=== PATIENT | male | born 1950 | race Caucasian/White ===

== ENCOUNTER 2016-11-03 21:41 | Emergency (ER) | payer MEDICAID ==
[~2016-11-03] VITALS: Ht 170.2 cm; Wt 56.0 kg
[~2016-11-03 21:41] MED LIST: ADVAI500I PO; ALBU0.086 INH; AMLO5 PO; ATEN25 PO; DUONSOL2 NEB; MEDR4PAK3 PO; SPIRCAP INH; Z.0.OXYGENDME NC
[2016-11-03 21:47] VITALS: BP_SYST 160; BP_SYST 195; BP_DIAS 105; BP_DIAS 98; PULSE 97; RESP 20; TEMP 98.5; O2SAT 95
[2016-11-03] MEDS ORDERED: SODIUM CHLOR 0.9% 1000 ML INJ 1,000 ML IV SCH (21:55)
[2016-11-03] MEDS ORDERED: VENTAER INH (21:57)
[2016-11-03] MEDS ORDERED: MORPHINE SULFATE 4 MG/ML INJ IV PUSH ONE (22:00)
--- NOTE | 2016-11-03 22:02 | PD ---
HPI Chief Complaint: Abdominal Pain Time Seen by Provider: 21:56 Travel History International Travel<30 days: No Contact w/Intl Traveler<30days: No Traveled to known affect area: No History of Present Illness HPI 66-year-old male PMH of COPD, CHF, EtOH abuse, current smoker presents to the ED for evaluation of one month history of left sided abdominal and scrotal pain. Patient states that he's had a hernia in the area for "15 years" but it has become more painful over the last 3 days. He endorses one episode of vomiting. Denies fever, chills, decreased appetite, changes in bowel habits, dysuria. Endorses drinking alcohol daily. Patient states that he "wants this fixed tonight." PFSH Past Medical History Arthritis: No Asthma: Yes Autoimmune Disease: No Blood Disorders: No Anxiety: No Depression: No Heart Rhythm Problems: Yes Cancer: No Cardiovascular Problems: Yes High Cholesterol: No Chemotherapy: No Chest Pain: No Congestive Heart Failure: Yes COPD: Yes Cerebrovascular Accident: No Coronary Artery Disease: No Diabetes: No Diminished Hearing: No Endocrine: No Gastrointestinal Disorders: No GERD: No Glaucoma: No Genitourinary: No Headaches: No Hepatitis: No Hiatal Hernia: No Hypertension: Yes Immune Disorder: No Kidney Stones: No Musculoskeletal: No Neurologic: No Psychiatric: No Reproductive: No Respiratory: Yes (ASTHMA) Immunizations Current: Yes Migraines: No Myocardial Infarction: No Radiation Therapy: No Renal Failure: No Seizures: No Sickle Cell Disease: No Sleep Apnea: No Thyroid Disease: No Ulcer: No Tetanus Vaccination: < 5 Years Influenza Vaccination: No Past Surgical History Abdominal Surgery: Yes (APPY) AICD: No Appendectomy: Yes Arteriovenous Shunt: No Cardiac Surgery: No Cholecystectomy: No Ear Surgery: No Endocrine Surgery: No Eye Surgery: No Genitourinary Surgery: No Gynecologic Surgery: No Insulin Pump: No Joint Replacement: Yes (ANKLE SX TINO.) Oral Surgery: No Pacemaker: No Thoracic Surgery: No Other Surgery: Yes Social History Alcohol Use: Yes (4 BEERS DAILY) Tobacco Use: Yes (2CIGS/DAY) Substance Use: No Allergies-Medications (Allergen,Severity, Reaction): Coded Allergies: Grass (Verified Allergy, Severe, SOB, 11/03/16) Cultivated Oat Pollen (Verified Allergy, Intermediate, 11/03/16) Reported Meds & Prescriptions Reported Meds & Active Scripts Active Reported Ventolin Hfa 18 GM Inh (Albuterol Sulfate) 90 Mcg/Act Aer 2 Puff INH Q4H PRN Review of Systems Except as stated in HPI: all other systems reviewed are Neg Physical Exam Narrative GENERAL: Well-nourished, well-developed white male in no acute distress. SKIN: Focused skin assessment warm/dry. HEAD: Normocephalic. EYES: No scleral icterus. No injection or drainage. NECK: Supple, trachea midline. No JVD or lymphadenopathy. CARDIOVASCULAR: Regular rate and rhythm without murmurs, gallops, or rubs. RESPIRATORY: Breath sounds equal bilaterally. No accessory muscle use. GASTROINTESTINAL: Abdomen soft, non-tender, nondistended. Active bowel sounds. Left sided inguinal hernia. Scrotum enlarged, tense. No erythema, warmth or TTP. Easily reduced. GENITOURINARY: Circumcised. Testes descended bilaterally without evidence of rotation. No lesions or erythema. No urethral discharge. MUSCULOSKELETAL: No cyanosis, or edema. BACK: Nontender without obvious deformity. No CVA tenderness. Data Data Last Documented VS Vital Signs Date Time Temp Pulse Resp B/P Pulse Ox O2 Delivery O2 Flow Rate FiO2 11/03/16 22:20 20 95 Room Air 11/03/16 21:47 98.5 97 160/98 Orders Complete Blood Count With Diff (11/03/16 21:55) Comprehensive Metabolic Panel (11/03/16 21:55) Lactic Acid (11/03/16 21:55) Urinalysis - C+S If Indicated (11/03/16 21:55) Iv Access Insert/Monitor (11/03/16 21:55) Ecg Monitoring (11/03/16 21:55) Oximetry (11/03/16 21:55) NPO (11/03/16 21:55) Sodium Chlor 0.9% 1000 Ml Inj (Ns 1000 M (11/03/16 21:55) Alcohol Withdrawal Asmt-Ciwa ONCE (11/03/16 22:02) MDM Medical Decision Making Medical Screen Exam Complete: Yes Emergency Medical Condition: Yes Differential Diagnosis inguinal hernia versus incarcerated inguinal hernia versus Narrative Course 66-year-old male PMH of COPD, EtOH abuse, current smoker presents to the ED for evaluation of one month history of left sided abdominal and scrotal pain. Patient states that he's had a hernia in the area for "15 years" but it has become more painful over the last 3 days. He endorses one episode of vomiting. Denies fever, chills, decreased appetite, changes in bowel habits, dysuria. Patient states that he "wants this fixed tonight." Vitals reviewed. Diffuse end respiratory wheezing in all lung diamond noted. O2 sats 95% on room air. There is a large left-sided inguinal hernia but this is easily reducible. We' ll check basic labs, administer a liter of fluids. Labs pending. Disposition per Dr. Mcdonald. Jacqueline Byrd Nov 03, 2016 22:01 Denies fever, chills, decreased appetite, changes in bowel habits, dysuria. Patient states that he "wants this fixed tonight." Jacqueline Byrd Nov 03, 2016 22:01
[2016-11-03] MEDS ORDERED: LORazepam 1 MG TAB PO PRN (22:15)
[2016-11-03] MEDS ORDERED: LORazepam 2 MG/ML VIAL IV PUSH PRN ×4 (22:15)
[2016-11-03] MEDS ORDERED: LORazepam 2 MG TAB PO PRN (22:15)
[2016-11-03 22:20] VITALS: RESP 20; O2SAT 95
[2016-11-03] MEDS ORDERED: ONDANSETRON ODT 4 MG TAB PO ONE (22:30)
[2016-11-03 22:41] LABS: AUTOMATED NEUTROPHIL # 5.8 TH/MM3 (1.8-7.7); BASOPHIL # 0.1 TH/MM3 (0-0.2); BASOPHIL % 1.1 % (0.0-2.0); EOSINOPHIL # 0.2 TH/MM3 (0-0.4); HEMATOCRIT 41.1 % (39.0-51.0); HEMO FLAGS DIFF FINAL; LYMPH % 14.8 % (9.0-44.0); LYMPHOCYTE # 1.1 TH/MM3 (1.0-4.8); MEAN CELL VOLUME 86.7 FL (80.0-100.0); MEAN CORPUSCULAR HEMOGLOBIN 29.8 PG (27.0-34.0); MEAN CORPUSCULAR HGB CONC 34.4 % (32.0-36.0); MONO % 6.1 % (0.0-8.0); PLATELET COUNT 225 TH/MM3 (150-450); RED BLOOD COUNT 4.74 MIL/MM3 (4.50-5.90); RED CELL DISTRIBUTION WIDTH 12.8 % (11.6-17.2); WHITE BLOOD COUNT 7.6 TH/MM3 (4.0-11.0)
[2016-11-03 23:05] LABS: ALT (GPT) 35 U/L (12-78); ANION GAP 10 MEQ/L (5-15); AST (GOT) 41 U/L (15-37); BICARBONATE 25.9 MEQ/L (21.0-32.0); BLOOD UREA NITROGEN 14 MG/DL (7-18); CHLORIDE 93 MEQ/L (98-107); GLOMERULAR FILTRATION RATE 82 ML/MIN (>89); POTASSIUM 3.6 MEQ/L (3.5-5.1); SODIUM (NA) 129 MEQ/L (136-145)
--- NOTE | 2016-11-03 23:05 | PD ---
Data Data Last Documented VS Vital Signs Date Time Temp Pulse Resp B/P Pulse Ox O2 Delivery O2 Flow Rate FiO2 11/04/16 02:07 98.1 72 20 151/78 95 Room Air Orders Complete Blood Count With Diff (11/03/16 21:55) Comprehensive Metabolic Panel (11/03/16 21:55) Lactic Acid (11/03/16 21:55) Urinalysis - C+S If Indicated (11/03/16 21:55) Iv Access Insert/Monitor (11/03/16 21:55) Ecg Monitoring (11/03/16 21:55) Oximetry (11/03/16 21:55) NPO (11/03/16 21:55) Sodium Chlor 0.9% 1000 Ml Inj (Ns 1000 M (11/03/16 21:55) Alcohol Withdrawal Asmt-Ciwa ONCE (11/03/16 22:02) Ondansetron Odt (Zofran Odt) (11/03/16 22:30) Abdomen, Kub Only (11/03/16 ) Urine Culture (11/04/16 00:00) Albuterol Neb (Albuterol Neb) (11/04/16 02:15) Labs Laboratory Tests Test 11/03/16 11/04/16 22:10 00:00 Sodium Level 129 MEQ/L Potassium Level 3.6 MEQ/L Chloride Level 93 MEQ/L Carbon Dioxide Level 25.9 MEQ/L Anion Gap 10 MEQ/L Blood Urea Nitrogen 14 MG/DL Creatinine 0.93 MG/DL Estimat Glomerular Filtration 82 ML/MIN Rate Random Glucose 94 MG/DL Lactic Acid Level 2.8 mmol/L Calcium Level 8.0 MG/DL Total Bilirubin 0.3 MG/DL Aspartate Amino Transf 41 U/L (AST/SGOT) Alanine Aminotransferase 35 U/L (ALT/SGPT) Alkaline Phosphatase 106 U/L Total Protein 7.6 GM/DL Albumin 3.8 GM/DL White Blood Count 7.6 TH/MM3 Red Blood Count 4.74 MIL/MM3 Hemoglobin 14.1 GM/DL Hematocrit 41.1 % Mean Corpuscular Volume 86.7 FL Mean Corpuscular Hemoglobin 29.8 PG Mean Corpuscular Hemoglobin 34.4 % Concent Red Cell Distribution Width 12.8 % Platelet Count 225 TH/MM3 Mean Platelet Volume 8.0 FL Neutrophils (%) (Auto) 76.0 % Lymphocytes (%) (Auto) 14.8 % Monocytes (%) (Auto) 6.1 % Eosinophils (%) (Auto) 2.0 % Basophils (%) (Auto) 1.1 % Neutrophils # (Auto) 5.8 TH/MM3 Lymphocytes # (Auto) 1.1 TH/MM3 Monocytes # (Auto) 0.5 TH/MM3 Eosinophils # (Auto) 0.2 TH/MM3 Basophils # (Auto) 0.1 TH/MM3 CBC Comment DIFF FINAL Differential Comment Urine Color LIGHT-YELLOW Urine Turbidity CLEAR Urine pH 5.5 Urine Specific [place] 1.004 Urine Protein 30 mg/dL Urine Glucose (UA) NEG mg/dL Urine Ketones NEG mg/dL Urine Occult Blood NEG Urine Nitrite NEG Urine Bilirubin NEG Urine Urobilinogen LESS THAN 2.0 MG/DL Urine Leukocyte Esterase LARGE Urine RBC 2 /hpf Urine WBC 13 /hpf Urine WBC Clumps OCC Urine Amorphous Sediment RARE Urine Bacteria MANY /hpf Urine Mucus FEW /lpf Microscopic Urinalysis Comment CULTURE INDICATED MDM Supervised Visit with SRI: Yes Narrative Course Patient care assumed from Danielle Byrd at 2300. This is a 66-year-old male who presents emergency Department intoxicated tonight with complaints of left inguinal swelling for the past month. Patient states that he would like to have his hernia fixed. Denies any nausea vomiting blood in the stool or fevers. Ms. Byrd reported that she was able to easily reduce his left direct inguinal hernia. On my initial evaluation the patient is eating though he is intoxicated, he has no complaints currently. On my examination the hernia has recurred is grapefruit size but was easily reduced. No signs symptoms of strangulation, initial laboratory workup is negative, nonspecific bowel gas pattern on a KUB but the stomach is distended. Patient again is tolerating by mouth. He will be allowed to sleep it off in the emergency department total time is clinically sober and then he may follow up outpatient with surgery. Discussed with him return to ED criteria. Diagnosis Primary Impression: Left inguinal hernia Additional Impression: Alcohol intoxication Referrals: Henri Abdulalhi MD Disposition: 01 DISCHARGE HOME Condition: Stable Perez Mcdonald MD Nov 03, 2016 23:05
[2016-11-03 23:07] LABS: ALKALINE PHOSPHATASE 106 U/L (45-117); TOTAL BILIRUBIN ADULT 0.3 MG/DL (0.2-1.0)
--- NOTE | 2016-11-03 23:49 | RADRPT ---
EXAM DATE/TIME: 11/03/2016 23:30 [facility] COMPARISON: No previous studies available for comparison. INDICATIONS : Inguinal hernia. Abdominal pain MEDICAL HISTORY : Inguinal hernia >15 years SURGICAL HISTORY : None. ENCOUNTER: Initial ACUITY: >1 year PAIN SCORE: 3/10 LOCATION: Bilateral lower quadrant FINDINGS: 2 AP supine views of the abdomen and pelvis were obtained and demonstrate moderate gaseous distention in the stomach. Gas and stool is noted segmentally in the colon. There is no evidence of free air or mass effect these supine views. The bony structures are intact. There is apparent pill projected ove r the distal stomach. CONCLUSION: Moderate gaseous distention of the stomach. Henri Salvador MD on November 03, 2016 at 23:47 Board Certified Radiologist. This report was verified electronically.
[2016-11-04 00:37] LABS: BACTERIA, URINE MANY /hpf; BLOOD, URINE NEG (NEG); COMMENT (UR) CULTURE INDICATED; CULTURE IF INDICATED CULTURE INDICATED; GLUCOSE,URINE NEG (NEG); KETONE, URINE NEG (NEG); MUCUS URINE FEW /lpf (OCC); NITRITE,URINE NEG (NEG); PH, URINE 5.5 (5.0-8.5); URINE COLOR LIGHT-YELLOW (YELLW/STRAW)
[2016-11-04 02:07] VITALS: BP 151/78; PULSE 72; RESP 20; TEMP 98.1; O2SAT 95
[2016-11-04] MEDS ORDERED: RESP: ALBUTEROL 1.25 MG/3 ML NEB (SCH) NEB ONE (02:15)
[2016-11-04 06:33] VITALS: BP 168/81; PULSE 79; RESP 20; O2SAT 96
== END 2016-11-04 10:18 | disposition home or self-care (01) ==
LOC: NEPE 21:41
DX: K40.90 Unilateral inguinal hernia, without obstruction or gangrene, not specified as recurrent (principal); I50.9 Heart failure, unspecified; B96.1 Klebsiella pneumoniae [K. pneumoniae] as the cause of diseases classified elsewhere; I10 Essential (primary) hypertension; F10.129 Alcohol abuse with intoxication, unspecified; Z72.0 Tobacco use; Y90.9 Presence of alcohol in blood, level not specified
CPT/HCPCS: 74000; 80053; 81001; 83605; 85025; 87077; 87086; 87186; 94664; 96360; 99285; J7030; J7613